=== PATIENT | male | born 1990 | race African-American/Black ===

== ENCOUNTER 2017-05-09 12:44 | Emergency (ER) | payer MEDICAID, BC ==
[~2017-05-09] VITALS: Ht 170.2 cm; Wt 73.0 kg
[2017-05-09 13:23] VITALS: BP 140/100
== END 2017-05-10 08:40 | disposition left against medical advice (07) ==
LOC: ER 12:44
DX: K08.89 Other specified disorders of teeth and supporting structures (principal); Z53.21 Procedure and treatment not carried out due to patient leaving prior to being seen by health care provider

== ENCOUNTER 2017-05-10 11:38 | Emergency (ER) | payer BC, MEDICAID ==
[~2017-05-10] VITALS: Ht 170.2 cm; Wt 75.0 kg
[2017-05-10 14:17] VITALS: BP 144/79
== END 2017-05-10 15:21 | disposition home or self-care (01) ==
LOC: ER 11:38
DX: R51 Headache (principal); R22.0 Localized swelling, mass and lump, head; F12.10 Cannabis abuse, uncomplicated; F17.200 Nicotine dependence, unspecified, uncomplicated
CPT/HCPCS: 99281; 99283

== ENCOUNTER 2017-05-19 23:51 | Emergency (ER) | payer MEDICAID ==
[~2017-05-19] VITALS: Ht 170.2 cm; Wt 75.0 kg
[2017-05-20 03:29] VITALS: BP 101/73
== END 2017-05-20 04:30 | disposition home or self-care (01) ==
LOC: ER 05-20 04:27
DX: L01.00 Impetigo, unspecified (principal); R03.0 Elevated blood-pressure reading, without diagnosis of hypertension; F12.90 Cannabis use, unspecified, uncomplicated
CPT/HCPCS: 99283

== ENCOUNTER 2018-12-22 18:33 | Emergency (ER) | payer SELFPAY ==
[~2018-12-22] VITALS: Ht 170.2 cm; Wt 80.0 kg
[2018-12-22] MEDS ORDERED: IBUPROFEN 600MG TABLET PO ONE (21:45)
[2018-12-22 22:33] VITALS: BP 128/82
== END 2018-12-22 22:46 | disposition home or self-care (01) ==
LOC: ER 18:33
DX: S46.912A Strain of unspecified muscle, fascia and tendon at shoulder and upper arm level, left arm, initial encounter (principal); S29.011A Strain of muscle and tendon of front wall of thorax, initial encounter; F17.210 Nicotine dependence, cigarettes, uncomplicated; Y08.89XA Assault by other specified means, initial encounter; Y93.89 Activity, other specified; Y92.89 Other specified places as the place of occurrence of the external cause; Y99.8 Other external cause status
CPT/HCPCS: 71045; 73030; 93005; 99283; 99406; Z7610